=== PATIENT | female | born 1990 | race Caucasian/White ===

== ENCOUNTER 2018-03-07 21:29 | Emergency (ER) | payer OTHER, MEDICAID, SELFPAY ==
[2018-03-07 21:42] VITALS: BP 101/65; PULSE 111; RESP 16; TEMP 37.1; O2SAT 100; BMI 22.8
[2018-03-07] MEDS: KETOROLAC 60 MG/2 ML VIAL IM (22:27)
[2018-03-07] MEDS: ACETAMINOPHEN 325 MG TABLET 975 MG PO (22:27)
--- NOTE | 2018-03-07 23:02 | ED.HA ---
HPI - Headache General Chief Complaint: Headache Stated Complaint: HEADACHE Time Seen by Provider: 03/07/18 21:33 Source: patient and family Mode of arrival: ambulatory Limitations: no limitations History of Present Illness HPI Narrative: Patient presents with a chief complaint of a frontal headache for the past few days. She denies any focal neurologic findings or injury. She denies any chest pain, shortness of breath or cough. She has had no nausea or vomiting. She denies any neck pain. MD Complaint: headache and migraine Onset (ago): minute(s) Onset description: gradual Location: frontal Severity: mild Quality: aching and throbbing Relieving factors: nothing Exacerbating factors: none Context: occurred at rest Related Data Previous Rx's Medication Instructions Recorded acyclovir 800 mg PO 5XD #50 tab 12/19/16 mupirocin 2 % TOPICAL BID #22 gm 12/19/16 Allergies Allergy/AdvReac Type Severity Reaction Status Date / Time No Known Drug Allergies Allergy Verified 03/07/18 22:25 Review of Systems Review of Systems All systems reviewed & are unremarkable except as noted in HPI and below Constitutional Denies chills, Denies fever(s), Reports headache(s), Denies lethargy and Denies weakness Eyes Denies change in vision, Denies eye discharge, Denies irritation and Denies loss of vision ENT Ears, Nose, Mouth, and Throat: Denies change in voice, Reports headache(s), Denies neck pain and Denies sore throat Cardiovascular Denies chest pain, Denies irregular heart rhythm, Denies lightheadedness, Denies palpitations, Denies dyspnea, Denies dyspnea on exertion and Denies orthopnea Respiratory Denies cough, Denies dyspnea, Denies dyspnea on exertion and Denies wheezing Gastrointestinal Gastrointestinal: Denies abdominal pain, Denies change in bowel habits, Denies diarrhea, Denies nausea and Denies vomiting Genitourinary Denies hematuria, Denies flank pain, Denies urinary incontinence and Denies urinary urgency Musculoskeletal Denies neck pain Integumentary/Breasts Denies pruritus, Denies erythema, Denies rash and Denies wounds Neurologic Denies confusion, Reports headache(s), Denies loss of vision and Denies weakness Psychiatric Denies anxiety, Denies confusion, Denies depression, Denies homicidal ideation and Denies suicidal ideation Endocrine Denies palpitations Hematologic/Lymphatic Denies easy bruising Allergic/Immunologic Denies wheezing [facility] Social History Smoking Status: Current every day smoker Exam Narrative Exam Narrative: GEN: AOx3 and in mild distress EYES: Pupils are equal, round, and reactive to light and accommodation. Extraoccular muscles are intact bilaterally. There is no subconjunctival hemorrhage or exudate. CHEST: Lungs are clear to auscultation bilaterally and free of wheezes, rales, or rhonchi. Heart rate is regular rhythm, there are no murmurs, clicks, rubs, or gallops. There is no chest wall tenderness. ABD: Abdomen is soft and nontender. There is no guarding or rebound. Bowel sounds are normal in all 4 quadrants. There is no mass or organomegaly. EXT: Full painless ROM of all extremities with no loss of sensation or strength. SKIN: Warm, pink, and dry. No erythema or rash NIH Stroke Scale 1a. LOC: Patient is alert and keenly responsive (0) 1b. LOC Questions: Patient answers both LOC questions accurately (0) 1c. LOC Commands: Patient performs both tasks correctly (0) 2. Best Gaze: Normal (0) 3. Visual: No visual loss (0) 4. Facial palsy: Normal symmetrical movements (0) 5. Motor arm: No drift (0) 6. Motor leg: No drift (0) 7. Limb ataxia: Absent (0) 8. Sensory: Normal (0) 9. Best language: No aphasia; normal (0) 10. Dysarthria: Normal (0) 11. Extinction and inattention: No abnormality (0) NIHSS: 0 Initial Vital Signs Initial Vital Signs: Vital Signs Temperature 98.7 F 03/07/18 21:42 Pulse Rate 111 H 03/07/18 21:42 Respiratory Rate 16 03/07/18 21:42 Blood Pressure 101/65 03/07/18 21:42 Pulse Oximetry 100 03/07/18 21:42 Course Orders Ordered: Discontinued Medications Acetaminophen (Tylenol) 975 mg PO NOW ONE Stop: 03/07/18 22:22 Last Admin: 03/07/18 22:27 Dose: 975 mg Ketorolac Tromethamine (Toradol) 60 mg IM NOW ONE Stop: 03/07/18 22:22 Last Admin: 03/07/18 22:27 Dose: 60 mg Reevaluation(s) Reevaluation #1: Near complete resolution of symptoms after above-stated therapies Vital Signs - 8 hr 03/07/18 21:42 Temperature 98.7 F Pulse Rate 111 H Respiratory Rate 16 Blood Pressure 101/65 Pulse Oximetry 100 Discharge Plan Departure Patient Disposition: Home Clinical Impression: Headache Discharge Date/Time: 03/08/18 01:20 Interventions: ED Discharge Assessment Last Done: 03/08/18 01:49 Instructions: DI for Headache Activity Restrictions/Additional Instructions: *You have been diagnosed with [ acute headache ] *What to do: *Take medications as directed: Down on Motrin *Follow up with your primary care provider in 2-3 days, call for an appointment. Let them know you were seen in the Emergency Department and that we ask that you be seen in follow up *Return to ER if you should have any new, worsening or concerning symptoms Prescriptions: No Action acyclovir 800 MG tablet 800 mg PO 5XD Qty: 50 RF: 0 mupirocin 2 % ointment 2 % Topical BID Qty: 22 RF: 0
[2018-03-07 23:15] VITALS: BP 108/69; PULSE 104; RESP 18; TEMP 37.2; O2SAT 97
== END 2018-03-08 01:20 | disposition home or self-care (01) ==
PROVIDERS: Emergency Provider Emergency Medicine; Family Provider Family Medicine; PCP Family Medicine
DX: R51 Headache (principal)
CPT/HCPCS: 96372; 99282; 99283; J1885

== ENCOUNTER 2018-03-10 16:24 | Inpatient (IN) | payer OTHER, MEDICAID, SELFPAY ==
[2018-03-10] VITALS (7 sets, daily range): BP systolic 92–112; BP diastolic 56–78; PULSE 112–141; RESP 16–22; TEMP 36.6–39.3; O2SAT 95–98; BMI 20.9; BMI 22.4
--- NOTE | 2018-03-10 17:45 | DI.RAD.S_ITS ---
PROCEDURE: XR CHEST 1V INDICATIONS: suspected sepsis TECHNIQUE: One view of the chest was acquired. COMPARISON: None. FINDINGS: Surgical changes and devices: Nipple piercings are noted bilaterally. Lungs and pleura: No pleural effusions or pneumothorax. Lungs are clear. Mediastinum: Mediastinal contours appear normal. Heart size is normal. Bones and chest wall: No suspicious bony lesions. Overlying soft tissues appear unremarkable. IMPRESSION: No acute cardiopulmonary findings. Dictated by: Ninoska Oneill M.D. on 03/10/2018 at 18:30 Approved by: Ninoska Oneill M.D. on 03/10/2018 at 18:30
[2018-03-10] MEDS: SODIUM CHLORIDE 0.9% 1,000 ML 1000 ML IV (17:53)
[2018-03-10 17:56] LABS: Add Manual Diff / Slide Review NO; Basophils Percent Auto 0.3 % (0-2); Hematocrit 35.6 % (36-46); Lymphocytes Percent Auto 6.7 % (25-40); Mean Corpuscular HGB Conc 33.8 % (30-36); Mean Corpuscular Hemoglobin 26.1 PG (26-34); Mean Corpuscular Volume 77.3 fL (80-100); Monocytes Percent Auto 6.6 % (3-14); Neutrophils Absolute Auto 14000 /uL (3000-5900); Neutrophils Percent Auto 86.4 % (50-75); Platelet Count 125 X10^3/uL (150-400); Red Blood Cell Count 4.61 X10^6/uL (4.0-5.2); Red Cell Distribution Width 19.2 % (11.6-14.8); White Blood Cell Count 16.2 X10^3/uL (4.5-11.0)
[2018-03-10 18:00] LABS: INR 1.8 (0.9-1.3); Prothrombin Time 19.8 SECONDS (10.1-12.7)
[2018-03-10 18:03] LABS: PTT Partial Thromboplastin Tim 31 SECONDS (26.4-36.2)
[2018-03-10 18:04] LABS: Alanine Aminotransferase 31 IU/L (9-52); Albumin 3.3 g/dL (3.5-5.0); Albumin Globulin Ratio 0.7 (1.0-2.8); Alkaline Phosphatase 186 U/L (38-126); Aspartate Aminotransferase 55 IU/L (14-36); Bilirubin Total 1.4 mg/dL (0.2-1.3); Blood Urea Nitrogen 21 mg/dL (7-17); Calcium 8.1 mg/dL (8.4-10.2); Carbon Dioxide 31 mmol/L (22-32); Chloride 89 mmol/L (98-107); Estimated Glomerular Filt Rate > 60.0 mL/min (>60); Globulin 4.8 g/dL (1.7-4.1); Glucose 125 mg/dL (70-100); HEMOLYSIS 35 (0-50); Lipase 105 U/L (23-300); Sodium 128 mmol/L (137-145); Total Protein 8.1 g/dL (6.3-8.2)
--- NOTE | 2018-03-10 18:23 | ED_ITS ---
HPI - Fever General Chief Complaint: Fever Stated Complaint: STATES BLOOD INFECTION Time Seen by Provider: 03/10/18 18:12 Source: patient Mode of arrival: ambulatory Limitations: no limitations History of Present Illness HPI Narrative: Patient is a 28-year-old female. Admits to being an active IV heroin user here for evaluation of fevers and chills and not feeling well for the past month. Patient states that she does share needles with her boyfriend. She states that her boyfriend was diagnosed with a ?fungal ?infection? she states that her last use of heroin was approximately 6 hr prior to arrival here in the ER. She has had chills, fevers, not feeling well. Denies any other medical problems. Has not tried anything for this prior to arrival Related Data Allergies Allergy/AdvReac Type Severity Reaction Status Date / Time No Known Drug Allergies Allergy Verified 03/10/18 16:47 Review of Systems Constitutional Reports chills, Reports fatigue, Reports fever(s) and Reports headache(s) ENT Ears, Nose, Mouth, and Throat: Reports headache(s) Cardiovascular Denies chest pain, Denies rapid heart rate, Denies palpitations and Denies dyspnea Respiratory Denies cough and Denies dyspnea Gastrointestinal Gastrointestinal: Denies abdominal pain, Denies change in stool character, Reports nausea and Denies vomiting Genitourinary Denies dysuria Musculoskeletal Reports myalgias and Reports arthralgias Comments: Patient states that she hurts ?all over? Integumentary/Breasts Denies lesions and Denies rash Neurologic Denies confusion and Reports headache(s) Psychiatric Denies anxiety and Denies confusion Endocrine Reports fatigue and Denies palpitations Hematologic/Lymphatic Denies easy bleeding and Denies easy bruising [facility] Medical History Drug abuse, IV (Chronic) Surgical History No pertinent past surgical history (Acute) Family History: Reviewed 03/10/18 by Helder Guzman MD Social History household members: significant other Smoking Status: Current every day smoker Exam Initial Vital Signs Initial Vital Signs: Vital Signs Temperature 102.8 F H 03/10/18 16:34 Pulse Rate 141 H 03/10/18 16:34 Respiratory Rate 18 03/10/18 16:34 Blood Pressure 92/60 03/10/18 16:34 Pulse Oximetry 97 03/10/18 16:34 Const General: cooperative, well developed, disheveled and ill appearing Nutritional Appearance: well nourished Orientation: alert, awake and oriented x3 HENMT Head: normal to inspection and normocephalic Resp Effort & Inspection: normal respiratory effort Auscultation: clear to auscultation bilaterally Cardio Rate: tachycardic Rhythm: regular rhythm Heart Sounds: no murmurs Pulses: radial pulses present GI Inspection: non-distended Palpation: soft, No firm and No tender Back/Spine/Pelvis Back: No CVA tenderness Cervical Spine: No cervical muscular tenderness and No cervical spinal tenderness Skin Other: Multiple wounds bilateral upper extremities consistent with her IV drug abuse. None of these wounds have surrounding cellulitis. Neuro General: alert, awake and oriented x3 Cognition: normal cognition Speech: speech normal Motor: muscle tone normal throughout Sensory Exam: no sensory deficits noted Extrem General: normal to inspection and capillary refill normal Psych Appearance: grossly normal and disheveled Course Orders Ordered: ED Orders 03/10/18 17:25 Complete Blood Count AUTO DIFF Stat Comprehensive Metabolic Panel Stat Lipase Stat Partial Thromboplastin Time Stat Procalcitonin Stat Prothrombin Time INR Stat 03/10/18 17:45 XR chest 1V Stat HIV 1 and 2 Antibody Routine Hepatitis C Virus Antibody Routine 03/10/18 18:20 Lactate (Lactic Acid) Stat 03/10/18 18:23 Blood Culture Stat 03/10/18 18:45 Blood Culture Stat 03/10/18 19:19 Education, smoking cessation ONGOING 03/11/18 05:00 Basic Metabolic Panel Routine Complete Blood Count AUTO DIFF Routine Acetaminophen (Tylenol) 650 mg PO Q6H PRN PRN Reason: As Needed for Fever/Mild Pain Hydromorphone HCl (Dilaudid) 2 mg IV Q3H PRN PRN Reason: Pain, Severe (7-10) Last Admin: 03/10/18 20:13 Dose: 2 mg Sodium Chloride (Normal Saline 0.9%) 1,905.09 mls @ 635.03 mls/hr 30 ml/kg infuse over 3 hr (1905.09 ml) IV CONT HORACIO Last Infusion: 03/10/18 20:21 Dose: 635 mls/hr Infusion: 03/10/18 19:25 Dose: 0 mls/hr Admin: 03/10/18 18:46 Dose: 635.03 mls/hr Sodium Chloride (Normal Saline 0.9%) 1,000 mls @ 100 mls/hr IV CONT HORACIO Last Admin: 03/10/18 21:57 Dose: 100 mls/hr Infusion: 03/10/18 21:57 Dose: 0 mls/hr Infusion: 03/10/18 20:25 Dose: 0 mls/hr Admin: 03/10/18 20:20 Dose: 100 mls/hr Vancomycin HCl/Dextrose (Vancomycin) 1,000 mg in 200 mls @ 200 mls/hr IV Q8H HORACIO Last Infusion: 03/10/18 21:38 Dose: 0 mls/hr Admin: 03/10/18 20:14 Dose: 200 mls/hr Lorazepam (Ativan) 1 mg IV Q4H PRN PRN Reason: Anxiety Last Admin: 03/10/18 20:13 Dose: 1 mg Ondansetron HCl (Zofran) 4 mg IV Q6HR HORACIO Last Admin: 03/10/18 20:20 Dose: 4 mg Vancomycin HCl (Vancomycin Per Pharmacy) 1 request MISC NOW ONE Stop: 03/10/18 19:19 Discontinued Medications Acetaminophen (Tylenol) 975 mg PO NOW ONE Stop: 03/10/18 18:25 Last Admin: 03/10/18 18:45 Dose: 975 mg Sodium Chloride (Normal Saline 0.9%) 1,000 mls @ 1,000 mls/hr IV BOLUS ONE Stop: 03/10/18 18:44 Last Infusion: 03/10/18 18:43 Dose: 0 mls/hr Admin: 03/10/18 17:53 Dose: 1,000 mls/hr Vancomycin HCl/Dextrose (Vancomycin) 1,000 mg in 200 mls @ 200 mls/hr IV NOW ONE Stop: 03/10/18 19:11 Last Admin: 03/10/18 19:12 Dose: 200 mls/hr Piperacillin/Tazobactam/Dextrose (Zosyn) 3.375 gm in 50 mls @ 100 mls/hr IV NOW ONE Stop: 03/10/18 18:41 Last Infusion: 03/10/18 19:16 Dose: 0 mls/hr Admin: 03/10/18 18:45 Dose: 100 mls/hr Vital Signs - 8 hr 03/10/18 16:34 03/10/18 18:30 03/10/18 18:53 Temperature 102.8 F H Pulse Rate 141 H 127 H 126 H Respiratory Rate 18 16 19 Blood Pressure 92/60 Blood Pressure [Left Arm] 109/63 100/66 Pulse Oximetry 97 95 97 03/10/18 19:13 03/10/18 19:30 03/10/18 20:12 Temperature 101.5 F H Pulse Rate 128 H Respiratory Rate 22 Blood Pressure 109/78 Blood Pressure [Left Arm] Pulse Oximetry 96 96 MDM - Fever Lab Data Attestation: I reviewed the patient's lab results. Result diagrams: 03/10/18 17:25 03/10/18 17:25 Lab Results 03/10/18 03/10/18 03/10/18 Range/Units 17:25 17:25 17:25 WBC 16.2 H (4.5-11.0) X10^3/uL RBC 4.61 (4.0-5.2) X10^6/uL Hgb 12.0 (12.0-16.0) g/dL Hct 35.6 L (36-46) % MCV 77.3 L (80-100) fL MCH 26.1 (26-34) PG MCHC 33.8 (30-36) % RDW 19.2 H (11.6-14.8) % Plt Count 125 L (150-400) X10^3/uL Neut % (Auto) 86.4 H (50-75) % Lymph % (Auto) 6.7 L (25-40) % [place] % (Auto) 6.6 (3-14) % Eos % (Auto) 0.0 L (2-4) % Baso % (Auto) 0.3 (0-2) % Neut # (Auto) 96662 H (0633-2323) /uL PT 19.8 H (10.1-12.7) SECONDS INR 1.8 H (0.9-1.3) APTT 31 (26.4-36.2) SECONDS Sodium (137-145) mmol/L Potassium (3.4-5.1) mmol/L Chloride (98-107) mmol/L Carbon Dioxide (22-32) mmol/L BUN (7-17) mg/dL Creatinine (0.52-1.04) mg/dL Estimated GFR (>60) mL/min BUN/Creatinine Ratio (6-22) Glucose (70-100) mg/dL Lactate (0.7-2.1) mmol/L Calcium (8.4-10.2) mg/dL Total Bilirubin (0.2-1.3) mg/dL AST (14-36) IU/L ALT (9-52) IU/L Alkaline Phosphatase (38-126) U/L Total Protein (6.3-8.2) g/dL Albumin (3.5-5.0) g/dL Globulin (1.7-4.1) g/dL Albumin/Globulin Ratio (1.0-2.8) Lipase (23-300) U/L Procalcitonin 2.57 H (<0.5) ng/mL 03/10/18 03/10/18 Range/Units 17:25 18:20 WBC (4.5-11.0) X10^3/uL RBC (4.0-5.2) X10^6/uL Hgb (12.0-16.0) g/dL Hct (36-46) % MCV (80-100) fL MCH (26-34) PG MCHC (30-36) % RDW (11.6-14.8) % Plt Count (150-400) X10^3/uL Neut % (Auto) (50-75) % Lymph % (Auto) (25-40) % [place] % (Auto) (3-14) % Eos % (Auto) (2-4) % Baso % (Auto) (0-2) % Neut # (Auto) (1444-8463) /uL PT (10.1-12.7) SECONDS INR (0.9-1.3) APTT (26.4-36.2) SECONDS Sodium 128 L (137-145) mmol/L Potassium 4.0 (3.4-5.1) mmol/L Chloride 89 L (98-107) mmol/L Carbon Dioxide 31 (22-32) mmol/L BUN 21 H (7-17) mg/dL Creatinine 0.70 (0.52-1.04) mg/dL Estimated GFR > 60.0 (>60) mL/min BUN/Creatinine Ratio 30.0 H (6-22) Glucose 125 H (70-100) mg/dL Lactate 2.0 (0.7-2.1) mmol/L Calcium 8.1 L (8.4-10.2) mg/dL Total Bilirubin 1.4 H (0.2-1.3) mg/dL AST 55 H (14-36) IU/L ALT 31 (9-52) IU/L Alkaline Phosphatase 186 H (38-126) U/L Total Protein 8.1 (6.3-8.2) g/dL Albumin 3.3 L (3.5-5.0) g/dL Globulin 4.8 H (1.7-4.1) g/dL Albumin/Globulin Ratio 0.7 L (1.0-2.8) Lipase 105 (23-300) U/L Procalcitonin (<0.5) ng/mL Imaging Data Chest x-ray: Radiologist's impression: PROCEDURE: XR CHEST 1V INDICATIONS: suspected sepsis TECHNIQUE: One view of the chest was acquired. COMPARISON: None. FINDINGS: Surgical changes and devices: Nipple piercings are noted bilaterally. Lungs and pleura: No pleural effusions or pneumothorax. Lungs are clear. Mediastinum: Mediastinal contours appear normal. Heart size is normal. Bones and chest wall: No suspicious bony lesions. Overlying soft tissues appear unremarkable. IMPRESSION: No acute cardiopulmonary findings. Dictated by: Ninoska Oneill M.D. on 03/10/2018 at 18:30 ECG Data Attestation: I personally reviewed and interpreted this ECG as follows: Prior ECG tracings: not available for review Interpretation: Sinus tachycardia Ventricular rate of 130 Normal QRS Normal QTC Normal axis No ST T wave changes MDM Narrative Medical decision making narrative: Patient is ill-appearing however not toxic. She is tachycardic, as an elevated white blood cell count, is febrile, no source of infection identified on her exam. She does admit to being an IV drug user and sharing her needles. Do have concern for bacteremia. 30 cc/kilos of fluids were ordered for the sepsis. Antibiotics ordered here in the emergency department. Three sets of blood cultures obtained secondary to the concern for endocarditis. Chest x-ray is unremarkable. Discussed the case with Dr. Guzman who accepts the patient for admission to the hospital. Discussed the admission with the patient. She expressed understanding and agreement with plan. Discharge Plan Departure Patient Disposition: Admitted As Inpatient Clinical Impression: Fever of unknown origin, Drug abuse, IV Discharge Date/Time: 03/10/18 19:28 Interventions: ED Discharge Assessment Last Done: 03/10/18 19:13 Admit Date/Time: 03/10/18 18:54 Admit Provider: Alek Estrella
[2018-03-10] MEDS: ACETAMINOPHEN 325 MG TABLET 975 MG PO (18:45)
[2018-03-10] MEDS: PIPERACILLIN-TAZO 3.375 GM/50 ML FROZ.PIGGY IV (18:45)
[2018-03-10] MEDS: SODIUM CHLORIDE 0.9% 1,905.09 ML 635.03 ML IV (18:46)
[2018-03-10 19:07] LABS: Procalcitonin 2.57 ng/mL (<0.5)
[2018-03-10] MEDS: VANCOMYCIN 1,000 MG/200 ML FROZ.PIGGY 200 MG IV ×2 (19:12→20:14)
--- NOTE | 2018-03-10 19:32 | PM.HP.1 ---
History of Present Illness Date Patient Seen: 03/10/18 Time Patient Seen: 19:33 Chief complaint: STATES BLOOD INFECTION Narrative: Patient is a 28-year-old female with current IV drug use history presents to the emergency department with complaints of fever and chills and not feeling well for the past week. On initial vitals she had a temp of 102.8?, heart rate 140, blood pressure 92/60, O2 sat 97% room air. Along with the fever and chills she has had severe pain in the lumbar spine as well as a headache and intermittent nausea or vomiting. She reports a slight cough but nothing persistent. She admits to sharing needles with her boyfriend. She uses both heroin and methamphetamine. She states her boyfriend was recently admitted to outside hospital and diagnosed with a yeast infection in his blood. She states she had blood work done a month ago and told she has elevated liver enzymes and to get checked for hepatitis-C. She has not had this testing done. She denies HIV history. Patient History Family & Social History Family History: Reviewed 03/10/18 by Helder Guzman MD Safety & Behavioral: Feels Safe in Current Yes Environment Been Physically Hurt or No Threatened By a Person Tobacco & Substance use: Smoking Status Current every day smoker alcohol intake frequency holiday/special occasion Substance Use Type marijuana,crack/cocaine,heroin,IV drugs Comment: Patient is currently homeless. Meds Home Medications Medication Instructions Recorded Confirmed Type acyclovir 800 mg PO 5XD #50 tab 12/19/16 Rx mupirocin 2 % TOPICAL BID #22 gm 12/19/16 Rx Allergies Allergy/AdvReac Type Severity Reaction Status Date / Time No Known Drug Allergies Allergy Verified 03/10/18 16:47 Review of Systems Review of Systems All systems reviewed & are unremarkable except as noted in HPI and below Exam Vital Signs (past 8 hours): - 03/10/18 16:34 03/10/18 18:30 03/10/18 18:53 Temperature 102.8 F H Pulse Rate 141 H 127 H 126 H Respiratory Rate 18 16 19 Blood Pressure 92/60 Blood Pressure [Left Arm] 109/63 100/66 Pulse Oximetry 97 95 97 03/10/18 19:13 Temperature Pulse Rate 128 H Respiratory Rate 22 Blood Pressure 109/78 Blood Pressure [Left Arm] Pulse Oximetry 96 Oxygen Delivery Method Room Air Narrative Exam Narrative: GENERAL: Alert but ill-appearing female in moderate distress HEAD: Atraumatic. Normocephalic. EYES: Pupils equal, round and reactive. Extraocular motions intact. No scleral icterus. No injection or drainage. OROPHARYNX: Dry mucosa NECK: Trachea midline. No JVD or lymphadenopathy. CARDIOVASCULAR: Regular rate and rhythm without murmurs, gallops, or rubs. RESPIRATORY: Clear to auscultation bilaterally. GASTROINTESTINAL: Abdomen nondistended, soft, non-tender. No hepato-splenomegaly, no palpable masses. Back/musculoskeletal: She has localized tenderness over lumbar spine. No areas of swelling or fluctuance. No swollen or erythematous joints. EXTREMITIES: No edema. NEUROLOGICAL: Alert, well oriented, speech is intact, normal bilateral upper and lower extremity strength SKIN: warm, dry, multiple needle tracks noted on upper and lower extremities, no rash Objective Imaging Chest x-ray: Radiologist's impression: Normal, no acute abnormality Labs Result Diagrams: 03/10/18 17:25 03/10/18 17:25 Labs: Laboratory Results - last 24 hr 03/10/18 03/10/18 03/10/18 17:25 17:25 17:25 WBC 16.2 H RBC 4.61 Hgb 12.0 Hct 35.6 L MCV 77.3 L MCH 26.1 MCHC 33.8 RDW 19.2 H Plt Count 125 L Neut % (Auto) 86.4 H Lymph % (Auto) 6.7 L [place] % (Auto) 6.6 Eos % (Auto) 0.0 L Baso % (Auto) 0.3 Neut # (Auto) 78550 H PT 19.8 H INR 1.8 H APTT 31 Sodium Potassium Chloride Carbon Dioxide BUN Creatinine Estimated GFR BUN/Creatinine Ratio Glucose Lactate Calcium Total Bilirubin AST ALT Alkaline Phosphatase Total Protein Albumin Globulin Albumin/Globulin Ratio Lipase Procalcitonin 2.57 H 03/10/18 03/10/18 17:25 18:20 WBC RBC Hgb Hct MCV MCH MCHC RDW Plt Count Neut % (Auto) Lymph % (Auto) [place] % (Auto) Eos % (Auto) Baso % (Auto) Neut # (Auto) PT INR APTT Sodium 128 L Potassium 4.0 Chloride 89 L Carbon Dioxide 31 BUN 21 H Creatinine 0.70 Estimated GFR > 60.0 BUN/Creatinine Ratio 30.0 H Glucose 125 H Lactate 2.0 Calcium 8.1 L Total Bilirubin 1.4 H AST 55 H ALT 31 Alkaline Phosphatase 186 H Total Protein 8.1 Albumin 3.3 L Globulin 4.8 H Albumin/Globulin Ratio 0.7 L Lipase 105 Procalcitonin Assessment & Plan Plan: Assessment/Plan Narrative: 1. Sepsis: Patient presents with fever, leukocytosis, hypotension and tachycardia, elevated procalcitonin all indicative of sepsis. Blood pressure responding to initial IV volume resuscitation. Likely source is blood borne bacteremia, especially staphylococcal aureus, due to IV drug use. Differential includes systemic yeast or fungal infections since her partner was recently diagnosed and treated for unknown blood borne yeast infection. Patient has significant pain and tenderness in the lower spine concerning for osteomyelitis or diskitis. She also has headache but no nuchal rigidity suggestive of meningitis. She has elevated LFTs concerning for potential liver abscess versus chronic due to hepatitis-C or other causes. Chest x-ray looks okay. Three sets of blood cultures were obtained in the ED prior to antibiotic administration. Urinalysis pending. Plan: IV vancomycin. Continue volume resuscitation. Lumbar MRI, rule out osteomyelitis or diskitis. Repeat labs in a.m.. Patient is difficult IV stick with tenuous peripheral IV and PICC line ordered. 2. Elevated LFTs: Obtain abdominal ultrasound, hepatitis C antibody. 3. IV drug use, heroin and methamphetamine dependency: Control withdrawal with IV lorazepam and Dilaudid as needed. Patient consents to HIV testing. 4. Coagulopathy: INR 1.8 possibly due to chronic liver disease versus nutritional or sepsis related.
[2018-03-10] MEDS: LORazepam 2 MG/ML SYRINGE 1 MG IV (20:13)
[2018-03-10] MEDS: HYDROMORPHONE 2 MG INJ IV ×2 (20:13→23:41)
[2018-03-10] MEDS: SODIUM CHLORIDE 0.9% 1,000 ML 100 ML IV ×2 (20:20→21:57)
[2018-03-10] MEDS: ONDANSETRON 4 MG/2 ML INJ IV (20:20)
--- NOTE | 2018-03-10 22:12 | PC.ADMIT ---
1517 [facility] Admission Note: The patient,Carol Arreola,28 y/o, was given written information regarding hospital policies, unit procedures and contact persons. Patient's smoking status: Current every day smoker. Vital Signs - 8 hr 03/10/18 16:34 03/10/18 18:30 03/10/18 18:53 Temperature 102.8 F H Pulse Rate 141 H 127 H 126 H Respiratory Rate 18 16 19 Blood Pressure 92/60 Blood Pressure [Left Arm] 109/63 100/66 Pulse Oximetry 97 95 97 03/10/18 19:13 03/10/18 19:30 03/10/18 20:12 Temperature 101.5 F H Pulse Rate 128 H Respiratory Rate 22 Blood Pressure 109/78 Blood Pressure [Left Arm] Pulse Oximetry 96 96 Pt arrived to floor at 1930. Pt shivering, shaking in pain. Pt temp 101.5. Pt compliant. pt oriented to hospital room and procedures, Pt uses call light, sba to br. Pt given lots of snacks. Pt tearful at times. asked if she was going to . reassured pt that it was good she came in. pt asking about boyfriend and if he has called to ask about her yet. Pt given pain medicine and ativan. midline started by precision. double lumen. will continue to monitor pt for safety. bed alarm on. side rails up x3. pt had jewelry, sweat pants, bra and sweater, placed in bag and put in pt closet. Pt forthcoming will all drug use and history. Pt stated her boyfriend was sick a month ago and signed himself out AMA and she believes that they may have accidentally shared needles. Pt sated she has not felt well for a few days, pt stated that her boyfriend told her she needed to come in. Pt updated on plan of acre, medicine, and use and to not misuse midline. will continue to monitor.
--- NOTE | 2018-03-10 22:30 | PC.ADMIT ---
Addendum entered by Lizeth Anne R.N. 03/10/18 22:34: 2020- precision in to start midline on pt. double lumen. to be flushed with 50 units heparin tubes. will continue to monitor. Original Note: 1517 [address] Timmons Admission Note: The patient,Carol Arreola,28 y/o, was given written information regarding hospital policies, unit procedures and contact persons. Patient's smoking status: Current every day smoker. Vital Signs - 8 hr 03/10/18 16:34 03/10/18 18:30 03/10/18 18:53 Temperature 102.8 F H Pulse Rate 141 H 127 H 126 H Respiratory Rate 18 16 19 Blood Pressure 92/60 Blood Pressure [Left Arm] 109/63 100/66 Pulse Oximetry 97 95 97 03/10/18 19:13 03/10/18 19:30 03/10/18 20:12 Temperature 101.5 F H 101.5 F H Pulse Rate 128 H 128 H Respiratory Rate 18 Blood Pressure 109/78 112/65 Blood Pressure [Left Arm] Pulse Oximetry 96 98 Pt arrived to floor at 1930. Pt awake and alert. ambulatory. opt grimacing and shivering. PT has goose pimples throughout body. pt compliant and forthcoming with drug abuse. Pt states she is really scared, asked if she was going to . fluids infusing. belongings in closet. Pt complaint. urine collected and sent down. Pt given snacks, and meds per mar. Pt compliant. PT very cooperative. Pt asked multiple times if boyfriend tal had called. stated that she had accidentally possibly shared needles with boyfriend a while back, and her boyfriend was in the hospital and signed out AMA and that he had yeast in his blood. Pt states she is homeless and lives in her car. last she knew her boyfriend was in [place]. he encouraged her to come in and that she has not been feeling well for a few days and has not slept well for the last few nights. Pt fever coming down. belongings and call light within reach. pt given soup and pt eating. will continue to monitor pt for safety.
[2018-03-10 23:51] LABS: HIV 1 and 2 Antibody NEGATIVE (NEGATIVE); Hep C Virus Ab w/Reflex Quant REACTIVE s/c (NEGATIVE)
[2018-03-11] VITALS (10 sets, daily range): BP systolic 106–115; BP diastolic 57–69; PULSE 106–122; RESP 16–18; TEMP 36.6–37.9; O2SAT 94–100
--- NOTE | 2018-03-11 | DI.US.S_ITS ---
PROCEDURE: US ABDOMEN COMPLETE INDICATIONS: ABNL LFTS TECHNIQUE: Real-time scanning was performed of the abdominal and retroperitoneal organs, with image documentation. COMPARISON: None. FINDINGS: Liver: The liver is measuring within the upper limits of normal for size. An no definite liver lesions are evident. The echogenicity of the liver is within normal limits. Gallbladder: The gallbladder is contracted. The patient was not n.p.o. for this examination. No cholelithiasis is evident. No pericholecystic fluid is identified. Biliary ducts: Intrahepatic bile ducts are non-dilated. Extrahepatic bile duct caliber measures 5 mm. Normal is 6-7 mm or less in diameter, or 10 mm or less post-cholecystectomy. Pancreas: Visualized portions of the pancreas are sonographically normal. Spleen: The spleen is mildly enlarged at 13.5 cm. No focal splenic lesions are evident. Kidneys: Kidneys are normal in size and echotexture. Right kidney measures 13.8 cm long; left kidney measures 13.3 cm long. No hydronephrosis or nephrolithiasis. No solid masses. Aorta: Visualized aorta is normal in caliber at less than 3 cm. Iliacs: Obscured by bowel gas. IVC: Intrahepatic inferior vena cava is patent. Miscellaneous: No free abdominal fluid. IMPRESSION: 1. Contracted gallbladder without evidence of cholelithiasis. 2. Borderline enlargement of the liver. No definite liver lesions. 3. Mild splenomegaly. Dictated by: Nolan Mahajan M.D. on 03/11/2018 at 9:15 Approved by: Nolan Mahajan M.D. on 03/11/2018 at 9:20
--- NOTE | 2018-03-11 | DI.MRI.S_ITS ---
PROCEDURE: MR LUMBAR SPINE WO CON INDICATIONS: Low back and bilateral hip pain TECHNIQUE: Noncontrast sagittal T1 spin echo and T2 fast echo, sagittal STIR, axial T1 and T2 fast spin echo through the lumbar spine. In cases with scoliosis, additional coronal T2 fast spin echo may be performed. COMPARISON: None. FINDINGS: Image quality: Excellent. Alignment and Curvature: There is normal bony alignment. Bone Marrow: Marrow is of normal overall signal. No acute vertebral body compression fractures. Spinal Cord: Conus medullaris terminates at the L1 level. Visualized cord demonstrates normal signal and size. Paraspinous Soft Tissues: No paravertebral masses. T12-L1: Normal appearance. L1-L2: Normal appearance. L2-L3: Normal appearance. L3-L4: Moderate loss of disc height is seen. Loss of disc signal is seen. Moderate disc bulge is seen, with a central disc extrusion, as on series 5 image 20, and on series 6 image 9, with slight inferior migration of disc material. There is an associated annular fissure seen posteriorly, as on series 6 image 9. Moderate bilateral neural foraminal narrowing is seen. Moderate central canal narrowing is seen. L4-L5: The disc height is well-preserved. Loss of disc signal is seen at this level. Moderate generalized disc bulge is seen. There is a central disc protrusion seen, with an associated annular fissure, as on series 6 image 8 and on series 5 image 12. Mild facet joint hypertrophy is seen. There is mild to moderate right-sided and moderate left-sided neural foraminal narrowing seen. Mild central canal narrowing is seen. L5-S1: No significant abnormality is seen. IMPRESSION: Focal degenerative changes are seen at the L3-L4 level and the L4-L5 level, which are more prominent than would be expected for a patient of this young age. At L3-L4, there is a central disc extrusion. Annular fissures are seen posteriorly at the L3-L4 and L4-L5 levels. Dictated by: Asher Shah M.D. on 03/11/2018 at 12:15 Approved by: Asher Shah M.D. on 03/11/2018 at 12:21
[2018-03-11] MEDS: LORazepam 2 MG/ML SYRINGE 1 MG IV ×2 (00:23→04:48)
[2018-03-11 01:22] LABS: Bacteria Urine None Seen; RBC Urine None Seen (0-5/HPF); WBC Urine None Seen (0-5/HPF)
[2018-03-11 01:23] LABS: Appearance Urine UA CLEAR; Bilirubin Urine UA NEGATIVE (NEGATIVE); Color Urine UA YELLOW; Glucose Urine UA NEGATIVE (Normal); Ketones Urine UA NEGATIVE (NEGATIVE); Leukocyte Esterase Urine UA NEGATIVE (NEGATIVE); Nitrite Urine UA Negative (Negative); Occult Blood Urine UA TRACE-LYSED (Negative); Protein Urine UA NEGATIVE (Negative); Specific Gravity Urine UA <=1.005 (1.000-1.035); Urobilinogen Urine UA 0.2 E.U./dL (0.2); pH Urine UA 5.5 (4.5-8.0)
[2018-03-11 01:32] LABS: Culture Indicated Urine Cult Not Indicated; Urine Comments Microscopic Normal
[2018-03-11] MEDS: VANCOMYCIN 1,000 MG/200 ML FROZ.PIGGY 200 MG IV (04:43)
[2018-03-11] MEDS: HYDROMORPHONE 2 MG INJ IV ×3 (04:43→12:30)
[2018-03-11 05:15] LABS: Enterococcus species Not Detected (Not Detect); Listeria monocytogenes Not Detected (Not Detect)
[2018-03-11 05:16] LABS: Methicillin-resistant gene Detected (Not Detect)
[2018-03-11 05:17] LABS: Acinetobacter baumannii Not Detected (Not Detect); E. coli Not Detected (Not Detect); Enterobacter cloacae complex Not Detected (Not Detect); Enterobacteriaceae species Not Detected (Not Detect); Streptococcus agalactiae (Gr B Not Detected (Not Detect); Streptococcus pneumonia Not Detected (Not Detect); Streptococcus pyogenes (Gr A) Not Detected (Not Detect); Streptococcus species Not Detected (Not Detect)
--- NOTE | 2018-03-11 05:17 | PC.NURSE ---
Addendum entered by Lizeth King R.N. 03/11/18 06:50: 0645 Pt has been resting with eyes closed and no s/s of distress when checked on by this RN the last hour and a half. Pt has now called with c/o 10/10 pain to her back, drowsy with FLACC score 1 due to occasional grimace. Agrees to take Tylenol for back pain and pt wants the next dose of Dilaudid to be brought in when available. Original Note: electric distribution engineer: 444 Vanco infusing. Medicated with IV Dilaudid for 9/10 back pain. Pt reports feeling restless and having some mild hallucinations, medicated with prn Ativan. 0510 notified by Lab of positive blood cultures. Pt has been on contact precautions since admitted to the floor so will continue with that plan of care and notify .
[2018-03-11 05:18] LABS: Candida albicans Not Detected (Not Detect); Candida glabrata Not Detected (Not Detect); Candida krusei Not Detected (Not Detect); Candida parapsilosis Not Detected (Not Detect); Candida tropicalis Not Detected (Not Detect); Haemophilus influenzae Not Detected (Not Detect); Neisseria meningitidis Not Detected (Not Detect); Proteus species Not Detected (Not Detect); Pseudomonas aeruginosa Not Detected (Not Detect); Serratia marcescens Not Detected (Not Detect)
[2018-03-11 05:52] LABS: Add Manual Diff / Slide Review NO; Basophils Percent Auto 0.3 % (0-2); Eosinophils Percent Auto 0.4 % (2-4); Hemoglobin 10.1 g/dL (12.0-16.0); Lymphocytes Percent Auto 8.8 % (25-40); Mean Corpuscular HGB Conc 33.7 % (30-36); Mean Corpuscular Hemoglobin 26.4 PG (26-34); Mean Corpuscular Volume 78.2 fL (80-100); Monocytes Percent Auto 9.3 % (3-14); Neutrophils Absolute Auto 10300 /uL (3000-5900); Neutrophils Percent Auto 81.2 % (50-75); Platelet Count 94 X10^3/uL (150-400); Red Blood Cell Count 3.84 X10^6/uL (4.0-5.2); Red Cell Distribution Width 18.7 % (11.6-14.8); White Blood Cell Count 12.7 X10^3/uL (4.5-11.0)
[2018-03-11 05:54] LABS: Blood Urea Nitrogen 12 mg/dL (7-17); Calcium 7.4 mg/dL (8.4-10.2); Carbon Dioxide 31 mmol/L (22-32); Chloride 101 mmol/L (98-107); Estimated Glomerular Filt Rate > 60.0 mL/min (>60); Glucose 122 mg/dL (70-100); HEMOLYSIS < 15 (0-50); Potassium 4.2 mmol/L (3.4-5.1); Sodium 136 mmol/L (137-145)
[2018-03-11] MEDS: ACETAMINOPHEN 325 MG TABLET 650 MG PO ×2 (06:48→20:16)
[2018-03-11] MEDS: VANCOMYCIN 1,250 MG in SODIUM CHLORIDE 0.9% 250 ML IV ×2 (12:29→20:07)
--- NOTE | 2018-03-11 13:14 | PM.PN.1 ---
Subjective Date Patient Seen: 03/11/18 Interval history: Patient growing MRSA and blood cultures from admission. Fever coming down on IV vancomycin. She has been cooperative with care. Complaint of low back pain. Exam Vital Signs (past 8 hours): - 03/11/18 07:00 03/11/18 07:55 Temperature 99.2 F Pulse Rate 122 H Respiratory Rate 18 Blood Pressure 108/61 Pulse Oximetry 96 96 Oxygen Delivery Method Room Air Narrative Exam Narrative: General: Alert, pleasant and cooperative Lungs: Breathing nonlabored Extremities: No edema Neurological: Oriented x3, nonfocal Objective Imaging MRI - lumbar: Radiologist's impression: Focal degenerative changes are seen at the L3-L4 level and the L4-L5 level, which are more prominent than would be expected for a patient of this young age. At L3-L4, there is a central disc extrusion. Annular fissures are seen posteriorly at the L3-L4 and L4-L5 levels. US - abdomen: Radiologist's impression: 1. Contracted gallbladder without evidence of cholelithiasis. 2. Borderline enlargement of the liver. No definite liver lesions. 3. Mild splenomegaly. Labs Result Diagrams: 03/11/18 05:15 03/11/18 05:15 Labs: Laboratory Results - last 24 hr 03/10/18 03/10/18 03/10/18 17:25 17:25 17:25 WBC 16.2 H RBC 4.61 Hgb 12.0 Hct 35.6 L MCV 77.3 L MCH 26.1 MCHC 33.8 RDW 19.2 H Plt Count 125 L Neut % (Auto) 86.4 H Lymph % (Auto) 6.7 L [place] % (Auto) 6.6 Eos % (Auto) 0.0 L Baso % (Auto) 0.3 Neut # (Auto) 11478 H PT 19.8 H INR 1.8 H APTT 31 Sodium Potassium Chloride Carbon Dioxide BUN Creatinine Estimated GFR BUN/Creatinine Ratio Glucose Lactate Calcium Total Bilirubin AST ALT Alkaline Phosphatase Total Protein Albumin Globulin Albumin/Globulin Ratio Lipase Procalcitonin 2.57 H Urine Color Urine Appearance Urine pH Ur Specific Rillito Urine Protein Urine Glucose (UA) Urine Ketones Urine Occult Blood Urine Nitrate Urine Bilirubin Urine Urobilinogen Ur Leukocyte Esterase Urine RBC Urine WBC Urine Bacteria Ur Culture Indicated? Micro UA Comment A. baumannii (PCR) Briana albicans (PCR) C. glabrata (PCR) C. krusei (PCR) C. parapsilosis (PCR) C. tropicalis (PCR) Enterobacteriac sp PCR E. cloacae complex PCR Enterococcus sp PCR E. coli (PCR) H. influenzae (PCR) Hepatitis C Antibody HIV 1&2 Antibody Klebsiella oxytoca PCR Klebsiella pneumoniae List. monocytogenes PCR N. meningitidis (PCR) Proteus species (PCR) Serratia marcescens PCR Staphylococcus sp PCR Staph aureus (PCR) mecA-Methicil Res Gene Streptococcus sp PCR Group A Strep (PCR) Strep agalactiae (PCR) Strep pneumoniae (PCR) P. aeruginosa (PCR) Yokasta/B-Vanco Res Genes KPC-Carbap Res Gene PCR 03/10/18 03/10/18 03/10/18 17:25 17:25 17:45 WBC RBC Hgb Hct MCV MCH MCHC RDW Plt Count Neut % (Auto) Lymph % (Auto) [place] % (Auto) Eos % (Auto) Baso % (Auto) Neut # (Auto) PT INR APTT Sodium 128 L Potassium 4.0 Chloride 89 L Carbon Dioxide 31 BUN 21 H Creatinine 0.70 Estimated GFR > 60.0 BUN/Creatinine Ratio 30.0 H Glucose 125 H Lactate Calcium 8.1 L Total Bilirubin 1.4 H AST 55 H ALT 31 Alkaline Phosphatase 186 H Total Protein 8.1 Albumin 3.3 L Globulin 4.8 H Albumin/Globulin Ratio 0.7 L Lipase 105 Procalcitonin Urine Color Urine Appearance Urine pH Ur Specific [place] Urine Protein Urine Glucose (UA) Urine Ketones Urine Occult Blood Urine Nitrate Urine Bilirubin Urine Urobilinogen Ur Leukocyte Esterase Urine RBC Urine WBC Urine Bacteria Ur Culture Indicated? Micro UA Comment A. baumannii (PCR) Not detected Briana albicans (PCR) Not detected C. glabrata (PCR) Not detected C. krusei (PCR) Not detected C. parapsilosis (PCR) Not detected C. tropicalis (PCR) Not detected Enterobacteriac sp PCR Not detected E. cloacae complex PCR Not detected Enterococcus sp PCR Not detected E. coli (PCR) Not detected H. influenzae (PCR) Not detected Hepatitis C Antibody Reactive H HIV 1&2 Antibody Negative Klebsiella oxytoca PCR Not detected Klebsiella pneumoniae Not detected List. monocytogenes PCR Not detected N. meningitidis (PCR) Not detected Proteus species (PCR) Not detected Serratia marcescens PCR Not detected Staphylococcus sp PCR Not Reportable Staph aureus (PCR) Detected H mecA-Methicil Res Gene Detected H Streptococcus sp PCR Not detected Group A Strep (PCR) Not detected Strep agalactiae (PCR) Not detected Strep pneumoniae (PCR) Not detected P. aeruginosa (PCR) Not detected Yokasta/B-Vanco Res Genes Not Reportable KPC-Carbap Res Gene PCR Not Reportable 03/10/18 03/10/18 03/11/18 18:20 21:45 05:15 WBC 12.7 H RBC 3.84 L Hgb 10.1 L Hct 30.0 L MCV 78.2 L MCH 26.4 MCHC 33.7 RDW 18.7 H Plt Count 94 L Neut % (Auto) 81.2 H Lymph % (Auto) 8.8 L [place] % (Auto) 9.3 Eos % (Auto) 0.4 L Baso % (Auto) 0.3 Neut # (Auto) 74311 H PT INR APTT Sodium Potassium Chloride Carbon Dioxide BUN Creatinine Estimated GFR BUN/Creatinine Ratio Glucose Lactate 2.0 Calcium Total Bilirubin AST ALT Alkaline Phosphatase Total Protein Albumin Globulin Albumin/Globulin Ratio Lipase Procalcitonin Urine Color Yellow Urine Appearance Clear Urine pH 5.5 Ur Specific Rillito <=1.005 Urine Protein Negative Urine Glucose (UA) Negative Urine Ketones Negative Urine Occult Blood Trace-lysed Urine Nitrate Negative Urine Bilirubin Negative Urine Urobilinogen 0.2 Ur Leukocyte Esterase Negative Urine RBC None seen Urine WBC None seen Urine Bacteria None seen Ur Culture Indicated? Cult not indicated Micro UA Comment Microscopic normal A. baumannii (PCR) Briana albicans (PCR) C. glabrata (PCR) C. krusei (PCR) C. parapsilosis (PCR) C. tropicalis (PCR) Enterobacteriac sp PCR E. cloacae complex PCR Enterococcus sp PCR E. coli (PCR) H. influenzae (PCR) Hepatitis C Antibody HIV 1&2 Antibody Klebsiella oxytoca PCR Klebsiella pneumoniae List. monocytogenes PCR N. meningitidis (PCR) Proteus species (PCR) Serratia marcescens PCR Staphylococcus sp PCR Staph aureus (PCR) mecA-Methicil Res Gene Streptococcus sp PCR Group A Strep (PCR) Strep agalactiae (PCR) Strep pneumoniae (PCR) P. aeruginosa (PCR) Yokasta/B-Vanco Res Genes KPC-Carbap Res Gene PCR 03/11/18 05:15 WBC RBC Hgb Hct MCV MCH MCHC RDW Plt Count Neut % (Auto) Lymph % (Auto) [place] % (Auto) Eos % (Auto) Baso % (Auto) Neut # (Auto) PT INR APTT Sodium 136 L Potassium 4.2 Chloride 101 Carbon Dioxide 31 BUN 12 Creatinine 0.60 Estimated GFR > 60.0 BUN/Creatinine Ratio 20.0 Glucose 122 H Lactate Calcium 7.4 L Total Bilirubin AST ALT Alkaline Phosphatase Total Protein Albumin Globulin Albumin/Globulin Ratio Lipase Procalcitonin Urine Color Urine Appearance Urine pH Ur Specific [place] Urine Protein Urine Glucose (UA) Urine Ketones Urine Occult Blood Urine Nitrate Urine Bilirubin Urine Urobilinogen Ur Leukocyte Esterase Urine RBC Urine WBC Urine Bacteria Ur Culture Indicated? Micro UA Comment A. baumannii (PCR) Briana albicans (PCR) C. glabrata (PCR) C. krusei (PCR) C. parapsilosis (PCR) C. tropicalis (PCR) Enterobacteriac sp PCR E. cloacae complex PCR Enterococcus sp PCR E. coli (PCR) H. influenzae (PCR) Hepatitis C Antibody HIV 1&2 Antibody Klebsiella oxytoca PCR Klebsiella pneumoniae List. monocytogenes PCR N. meningitidis (PCR) Proteus species (PCR) Serratia marcescens PCR Staphylococcus sp PCR Staph aureus (PCR) mecA-Methicil Res Gene Streptococcus sp PCR Group A Strep (PCR) Strep agalactiae (PCR) Strep pneumoniae (PCR) P. aeruginosa (PCR) Yokasta/B-Vanco Res Genes KPC-Carbap Res Gene PCR Assessment & Plan Plan: Assessment/Plan Narrative: 1. Sepsis due to MRSA bacteremia: Patient is getting IV vancomycin with improvement of fever, hypotension and leukocytosis. She is still mildly tachycardic. Blood cultures from admission growing MRSA and antibiotic sensitivities are pending. Obvious source is bacteremia due to status IV drug use. Lumbar MRI done for complaints of lower back pain but there is no evidence of osteomyelitis or diskitis on MRI. She does have some bulging disc. No evidence of liver or spleen abscess on ultrasound. Plan: Continue IV vancomycin with pharmacy service monitoring trough and adjusting dose. Transthoracic echo. She will need 2 weeks of IV antibiotic if there is low suspicion of endocarditis. She should also have repeat blood cultures at 48 hr to ensure clearing of bacteremia. Consider JUDITH if higher suspicion of endocarditis or if she has persistent bacteremia. 2. Hepatitis-C, presumed chronic: She tested positive for hepatitis-C. Note elevated bilirubin and coagulopathy on admission blood work. Abdominal ultrasound with mild hepatomegaly. Results were reviewed with patient. 3. IV drug use, heroin and methamphetamine dependency: Control withdrawal with oral lorazepam and Dilaudid as needed. She is negative HIV antibodies tested this admission. 4. Coagulopathy, thrombocytopenia: INR 1.8 due to chronic liver disease versus nutritional or sepsis related. Platelets 125 on admission dropped to 94 today. Continue monitoring. Quality VTE Deep Vein Thrombosis/Pulmonary Embolism Present on Admission: No
[2018-03-11] MEDS: LORazepam 1 MG TABLET PO ×2 (14:08→17:49)
[2018-03-11] MEDS: HYDROMORPHONE 2 MG TABLET PO (15:03)
--- NOTE | 2018-03-11 15:22 | CM.DPC ---
DCP/Assessment continued: DIRECT SERVICE WORKER notified patient that CM team would continue to follow closely for d/c planning needs and treatment options. Patient appreciative. P: Pending medical needs. If IV abx required, patient is not good candidate for outpatient therapy secondary to current IVDU. GAMA Bose
[2018-03-11] MEDS: ONDANSETRON 4 MG/2 ML INJ IV (17:48)
[2018-03-11] MEDS: HYDROMORPHONE 2 MG TABLET 4 MG PO ×2 (17:50→22:11)
--- NOTE | 2018-03-11 23:44 | PC.NURSE ---
Shift- New orders for Dilaudid 4mg PO Q-4hr. Parents, Bin and Fanta would like to be notified of any changes, positive or negative, and have left their phone #'s, which are in pt's chart. they will be back tomorrow AM. Pt drinking water and eating popcicles. C/O pain 03/04, with nausea @ 1745, medicated with dilaudid 4mg PO and zofran 4mg IVP, both effective. BRP to void. KEN midline NS @ 100, with vanco. Call light in reach and bed alarm on.
[2018-03-12] VITALS (10 sets, daily range): BP systolic 95–130; BP diastolic 56–71; PULSE 104–114; RESP 14–20; TEMP 36.2–37.6; O2SAT 94–99
--- NOTE | 2018-03-12 | DI.ECHO.S_ITS ---
[facility] +---------+ [facility] +---------+ : : [address] : : : : [id number] : : : : Phone: [phone] Echocardiogram Report + + :Name: ALYSSA DESAI Study Date: 03/12/2018 Height: 68 in : :[facility] Weight: 151 lb : : Gender: Female BSA: 1.8 m2 : :: 1990 Age: 28 yrs BP: 112/56 mmHg: :Reason For Study: Endocarditis : :History: IVDA : :Ordering Physician: Dr. Pendleton : :Megan Performed By: Marlyn Shay : + + Interpretation Summary 1. Small left ventricular cavity size with normal wall thickness and an estimated EF of 50-55% 2. Normal right ventricular size and systolic function. 3. A mass (or vegetation) is appreciated on the atrial side of the anterior mitral leaflet. There is an eccentric jet of at least mild mitral regurgitation. 4. Prolapse (versus partial flail) of the septal leaflet of the tricuspid valve with an eccentric jet of at least mild regurgitation. The estimated RVSP is 33 mm Hg. The estimated right atrial pressure is normal. There is no old study for comparison Procedure: A two-dimensional transthoracic echocardiogram with color flow and Doppler was performed. The study quality was technically adequate. There is no prior echocardiogram noted for this patient. The patient was in sinus tachycardia with heart rates between 107-115 bpm during the exam. Left Ventricle: The left ventricular cavity is small. There is normal left ventricular wall thickness. There is no ventricular septal defect visualized. The ejection fraction is estimated to be 50-55%. Assessment of diastolic parameters indicates normal left ventricular diastolic function and normal filling pressures. Right Ventricle: The right ventricle is normal in size and function. Atria: Both atria are normal in size. There is no Doppler evidence for an interatrial shunt. Mitral Valve: There is a moderate size vegetation or mass on the mitral valve. A mass is appreciated on the atrial side of the anterior mitral leaflet. There is an eccentric jet of mitral regurgitation - at least mild. Aortic Valve: The aortic valve is trileaflet. The aortic valve opens well. No obvious vegetation. No aortic regurgitation is present. Tricuspid Valve: Prolapse versus partial flail of the septal leaflet. There is mild tricuspid regurgitation. The right ventricular systolic pressure is estimated at 33 mmHg assuming a right atrial pressure of 8 mm Hg. Pulmonic Valve: The pulmonic valve is not well visualized. Great Vessels: The aortic root is normal size. The ascending aorta could not be visualized. The IVC is of normal diameter and collapses less than 50% with a sniff. This suggests a right atrial pressure of 8 mm Hg. Pericardium/ Pleura There is no pericardial effusion. MMode/2D Measurements & Calculations LVIDd: 3.6 cm LVOT diam: 2.1 cm LVIDs: 3.0 cm Ao root diam: 3.0 cm FS: 15.2 % EPSS: 0.79 cm IVSd: 1.1 cm LVPWd: 0.90 cm LV johnson. diameter/BSA (cm/m^2): 2.0 LV sys. diameter/BSA (cm/m^2): 1.7 LA A2 area: 13.9 cm2 RA long axis: 4.2 cm LA A4 area: 14.2 cm2 RA area: 14.8 cm2 LA length (vol): 3.6 cm RA vol: 44.4 ml LA vol: 46.1 ml RA : 24.5 ml/m2 LA vol index: 25.4 ml/m2 IVC diam: 1.9 cm Doppler Measurements & Calculations MV E max jose: 90.5 cm/sec TR max jose: 249.9 cm/sec MV A max jose: 66.6 cm/sec TR max P.0 mmHg MV E/A: 1.4 PA V2 max: 71.9 cm/sec Med Peak E' Jose: 11.5 cm/sec PA V2 mean: 50.3 cm/sec E/E' med: 7.9 PA mean P.1 mmHg MV dec time: 0.15 sec PA Accel Time: 0.08 sec MV P1/2t: 43.5 msec MV P1/2t max jose: 90.5 cm/sec MVA(P1/2t): 5.1 cm2 Reading Physician:SHAY
[2018-03-12] MEDS: ONDANSETRON 4 MG/2 ML INJ IV ×4 (00:08→18:20)
[2018-03-12] MEDS: LORazepam 1 MG TABLET PO ×3 (00:23→22:19)
[2018-03-12] MEDS: HYDROMORPHONE 2 MG TABLET 4 MG PO ×4 (02:55→14:55)
--- NOTE | 2018-03-12 03:22 | PC.NURSE ---
assistant casino shift manager: Pt initially very drowsy, hardly could keep her eyes open, reporting back pain 9/10 and feeling anxious regarding the whereabouts of her S.O. Medicated with Ativan. 0250 pt incontinent of urine. Having c/o back pain 03/04 and medicated with prn Dilaudid. Pt assisted to sink to brush her teeth and get cleaned up.
[2018-03-12] MEDS: VANCOMYCIN 1,250 MG in SODIUM CHLORIDE 0.9% 250 ML IV ×2 (04:05→14:02)
[2018-03-12] MEDS: SODIUM CHLORIDE 0.9% 500 ML 21 ML IV (11:06)
[2018-03-12 13:18] LABS: Vancomycin Trough 8.9 ug/mL (10-20)
--- NOTE | 2018-03-12 14:05 | PC.NURSE ---
Day Shift- Pt cooperative with care in AM, did have 2 outbursts calling out loud from BR wanting a shower, stating was in pain and wanted to get the shower done. Prior to this EDUCATIONAL RESOURCE CENTER TEACHER offered to help shower with pt and pt stated she would after her 1100 pain med dose. Pt's mother Fanta present to help with shower and ADL's, assistance offered. Pt apologetic, and then cooperative and thankful for care. Pt's boyfriend Ivelisse in pt's room in AM for short time, appropriate. Vanco trough drawn per order and sent to lab at [phone], at 1300 no trough result, lab called and stated not resulted yet. Around 1340, insurance underwriter sales saw vanco trough level, called pharmacy to verify dosing of 1200 vanco dose, was told to hold for clarification. Around 1355, rec'd call from pharmacy to give current dose and interval with change. See MAR. Pt's pain 7-9/10 to lower back and mid chest non-radiating, pain with deep breaths intermittently. ECHO started at 1200. Pt's mother and 2 visitors explained contact isolation precautions, compliant. Midline dressing changed at 1100 due to getting wet in shower. Dressing change done per hospital policy. Pt tolerated well.
--- NOTE | 2018-03-12 16:19 | CM.DANOTE ---
DCP/Note: Reviewed chart. Patient undergoing multiple testing today. It is anticipated that patient will need IV abx at time of d/c. made in aware in AM rounds that patient active IVDU. Therefore, SNF best option vs. remaining hospitalized. P: Anticipate SNF vs. home. Patient not good candidate for outpatient or home IV abx. CM team to attempt SNF placement. GAMA Bose
[2018-03-12] MEDS: ACETAMINOPHEN 325 MG TABLET 650 MG PO ×2 (16:30→22:19)
--- NOTE | 2018-03-12 17:29 | PM.PN.1 ---
Subjective Date Patient Seen: 03/12/18 Interval history: Patient complains of low back pain, head ache and aching shoulders She has low grade fevers Exam Vital Signs (past 8 hours): - 03/12/18 10:22 03/12/18 11:29 03/12/18 16:32 Temperature 98.8 F 99.7 F H Pulse Rate 111 H 114 H Respiratory Rate 18 20 Blood Pressure 112/56 L 119/69 Pulse Oximetry 97 98 99 03/12/18 16:46 Temperature 99.7 F H Pulse Rate Respiratory Rate Blood Pressure Pulse Oximetry Oxygen Delivery Method Room Air Oxygen Flow Rate 0 Narrative Exam Narrative: Awake and aler Lungs: clear to auscultation CV: RRR nl Sl S2 Abd: soft/non tender/ nondistended Ext: no edema Objective Labs Result Diagrams: 03/11/18 05:15 03/11/18 05:15 Labs: Laboratory Results - last 24 hr 03/12/18 Unknown Vancomycin Trough 8.9 L Assessment & Plan (1) Headache: Problem details: Continue Tylenol and monitor Qualifiers: Headache chronicity pattern: Headache type: other headache syndrome Intractability: Qualified Code(s): G44.89 - Other headache syndrome Current visit: No Status: Acute (2) Fever of unknown origin: Problem details: Staph aureus bactermia, MRSA Current visit: Yes Status: Acute (3) Drug abuse, IV: Problem details: Heroin and methamphetamine regular use and dependence Will start methadone Current visit: Yes Status: Chronic (4) Endocarditis of mitral valve: Problem details: Daptomycin, call placed to the for transfer. No beds today but will call back tomorrow Current visit: Yes Status: Acute (5) Hepatitis C: Problem details: New diagnosis, no treatment at this time Current visit: Yes Status: Acute Quality VTE Deep Vein Thrombosis/Pulmonary Embolism Present on Admission: No
[2018-03-12] MEDS: METHADONE 5 MG TABLET 20 MG PO (20:21)
[2018-03-13] VITALS: O2SAT 96
[2018-03-13] MEDS: LORazepam 1 MG TABLET PO ×3 (02:18→11:41)
[2018-03-13] MEDS: ACETAMINOPHEN 325 MG TABLET 650 MG PO (05:51)
[2018-03-13 05:55] VITALS: BP 103/63; PULSE 111; RESP 18; TEMP 36.8; O2SAT 95
--- NOTE | 2018-03-13 06:56 | PC.NURSE ---
shift leader: Pt initially very drowsy and was able to rest. 0545 pt woke up, was incontinent of urine, diaphoretic in bed and having c/o back and muscle pain. Cleaned pt up with assist from supportive sister and helped assist pt to the couch in room. Medicated with available PRN med Tylenol. Warm blankets applied to back which pt reported helped. 0615 medicated with prn Ativan for anxiety and withdrawal symptoms. 0645 pt resting on the couch with sister close by. Agrees to call if pt wakes up and needs assist.
[2018-03-13 08:10] VITALS: BP 106/59; PULSE 107; RESP 15; TEMP 36.5; O2SAT 98
[2018-03-13] MEDS: METHADONE 5 MG TABLET 20 MG PO (08:48)
[2018-03-13] MEDS: METHOCARBAMOL 500 MG TABLET PO (08:49)
[2018-03-13] MEDS: SODIUM CHLORIDE 0.9% 500 ML 21 ML IV (08:55)
[2018-03-13 09:00] VITALS: O2SAT 94
--- NOTE | 2018-03-13 10:36 | PM.PN.1 ---
Subjective Date Patient Seen: 03/13/18 Interval history: Some shortness of breath earlier but now improved. She continues to have low back pain. She is unsure if methadone has helped. Exam Vital Signs (past 8 hours): - 03/13/18 05:55 03/13/18 08:10 03/13/18 09:00 Temperature 98.3 F 97.7 F Pulse Rate 111 H 107 H Respiratory Rate 18 15 Blood Pressure 103/63 106/59 L Pulse Oximetry 95 98 94 Oxygen Delivery Method Room Air Oxygen Flow Rate 0 Narrative Exam Narrative: Awake and Alert, NAD Lungs: Clear to auscultation CV: RRR nl Sl S2 2/6 CAROL ANN Abd: soft/ non tender/ non distended no HSM Ext: no edema Objective Labs Result Diagrams: 03/11/18 05:15 03/11/18 05:15 Labs: ELaboratory Results - last 24 hr Echo reviewed: 1 cm mitral valve lesion, suggestive of a vegetation small amount of mitral regurgitation Triscupid valve with small jet? vegetation as well Blood cultures are MSSA, pansensitive 03/12/18 Unknown Vancomycin Trough 8.9 L Assessment & Plan (1) Endocarditis of mitral valve: Problem details: Daptomycin, call placed to the for transfer. No beds today but will call back tomorrow Discussed with Cardiology, Dr. 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
--- NOTE | 2018-03-13 11:20 | P.DS_ITS ---
History of Present Illness Date Patient Seen: 03/13/18 Chief complaint: STATES BLOOD INFECTION Narrative: Patient is a 28-year-old female with current IV drug use history presents to the emergency department with complaints of fever and chills and not feeling well for the past week. On initial vitals she had a temp of 102.8? , heart rate 140, blood pressure 92/60, O2 sat 97% room air. Along with the fever and chills she has had severe pain in the lumbar spine as well as a headache and intermittent nausea or vomiting. She reports a slight cough but nothing persistent. She admits to sharing needles with her boyfriend. She uses both heroin and methamphetamine. She states her boyfriend was recently admitted to outside hospital and diagnosed with a yeast infection in his blood. She states she had blood work done a month ago and told she has elevated liver enzymes and to get checked for hepatitis-C. She has not had this testing done. She denies HIV history. Discharge Providers Date of admission: 03/10/18 18:54 Primary care physician: Alex Barraza MD Discharge provider: Raina Fournier MD Summary Discharge Diagnosis: MSSA Bacteremia MSSA Sepsis MSSA Mitral Valve Endocarditis Hepatitis C-New diagnosis IV Substance Abuse-Heroine/Methamphatamine Hospital Course: Patient was admitted to the hospital for fever, sepsis, and low back pain. She had blood cultures that were positive for MSSA. She was initially treated with Vancomycin but her levels were subtherapeutic and she was switched to Daptomycin. Patient continued to have low back pain, low grade withdrawal from opioids. She underwent 2D echo which confirmed a vegetation on the mitral valve with mild mitral insufficiency. There was concern regarding a possible tricuspid valve vegetation as well. She made improvement clinically with antibiotics and IV hydration. As the patient wound need a Transesophageal Echo, Cardiology Consultation, Infectious Disease consultation, and CT Surgery consultation, arrangements were made to transfer her to a higher level of care. I spoke to Dr. Peralta and Dr. Bradshaw at [facility] in [place] who graciously agreed to accept her in transfer. The patient has been informed and arrangements were made to transfer her accordingly. Status at Discharge Functional status at discharge: independent ambulation Overall status at discharge: patient is not back to baseline Time Spent with Patient Greater than 30 minutes Exam Vital Signs (past 8 hours): - 03/13/18 05:55 03/13/18 08:10 03/13/18 09:00 Temperature 98.3 F 97.7 F Pulse Rate 111 H 107 H Respiratory Rate 18 15 Blood Pressure 103/63 106/59 L Pulse Oximetry 95 98 94 Oxygen Delivery Method Room Air Oxygen Flow Rate 0 Narrative Exam Narrative: patient is awake and alert Lungs: Clear to auscultation CV: RRR nl Sl S2 2/6 CAROL ANN Abd: soft/ non tender/ non distended/ no HSM Ext: no edema Objective Imaging MRI - lumbar: Radiologist's impression: Radiologist's impression: Focal degenerative changes are seen at the L3-L4 level and the L4-L5 level, which are more prominent than would be expected for a patient of this young age. At L3-L4, there is a central disc extrusion. Annular fissures are seen posteriorly at the L3-L4 and L4-L5 levels. US - abdomen: Radiologist's impression: diologist's impression: 1. Contracted gallbladder without evidence of cholelithiasis. 2. Borderline enlargement of the liver. No definite liver lesions. 3. Mild splenomegaly. Labs Result Diagrams: 03/11/18 05:15 03/11/18 05:15 Labs: Laboratory Results - last 24 hr 03/12/18 Unknown Vancomycin Trough 8.9 L Discharge Plan Discharge Plan Discharge Problem: Fever of unknown origin, Drug abuse, IV Patient Disposition: [facility] Transfer to: [facility] Under care of provider: Dr. Peralta Discharge Med Rec/Prescriptions Prescriptions: New lorazepam 1 mg Tablet 1 mg PO Q4HR PRN (Reason: Anxiety) Qty: 7 RF: 0 ondansetron HCl (PF) 4 mg/2 mL Solution 4 mg IV Q6HR Qty: 10 RF: 0 heparin, porcine (PF) 10 unit/mL Syringe 50 unit IV PRN PRN (Reason: Flush) 5 Days RF: 0 daptomycin 500 mg recon soln 410 mg IV Q24H Qty: 2 RF: 0 acetaminophen 325 mg Tablet 650 mg PO Q6H PRN (Reason: As Needed For Fever/Mild Pain) Qty: 30 RF: 0 methocarbamol 500 mg Tablet 500 mg PO QID PRN (Reason: Muscle Spasm) Qty: 20 RF: 0 No Action No Known Home Medications RF: 0 Discharge Orders: Discharge (Order); Ordered 03/13/18 Ordered By: Raina Fournier Discharge Health Status Brief summary of current health status: Patient was admitted with fever, tachycardia, hypotension. She was found to have MSSA bacterial endocarditis. Patient had a confirmed vegetation identified by 2D echo on the mitral valve. She was transferred to [facility] in [place] for a higher level of care. Drs. Peralta accepted her. I spoke to Dr. Do who is expecting her as well. 35 minutes was spent on this discharge Discharge Data Primary Care Provider: Alex Barraza Attending Provider: Helder Guzman Admit Date/Time: 03/10/18 18:54 Quality VTE Deep Vein Thrombosis/Pulmonary Embolism Present on Admission: No
[2018-03-13] MEDS: ONDANSETRON 4 MG/2 ML INJ IV (11:41)
[2018-03-13 11:58] VITALS: BP 106/63; PULSE 115; RESP 14; TEMP 36.4; O2SAT 99
--- NOTE | 2018-03-13 12:46 | PC.NURSE ---
Addendum entered by Valeria Bolton R.N. 03/13/18 14:11: TSF - ambul crew arrived, paperwork, brief report and vitals provided, tsf to vinicio, sister and SO picked up all belongings. Original Note: Addendum entered by Valeria Bolton R.N. 03/13/18 13:20: TRSF - report called to lettuce trimmer at [facility] in [facility], belongings packed by sister, mult flower vases and bags of snacks, dvd player, clothing bag, tele has been dc'd, voided prior to departure. Original Note: AM NOTE - pt is drowsy, awakens easily, diaphoretic, skin is warm to touch, pt has mult bruising, states back discomfort, asking for methadone, given 20mg po this am with robaxin for muscle tremors/spasm, sister is at bedside, denies nausea now, remy a few bites breakfast, drinking fluids, later Dr. Fournier in and informed pt that she would be transferred to [facility] in [facility], pt became a little tearful after update and given 1mg po ativan.
== END 2018-03-13 14:10 | disposition short-term general hospital (02) | DRG 720 ==
LOC: ED 18:52 → AC 18:55
PROVIDERS: Emergency Medicine; Admitting Provider Internal Medicine; Emergency Provider Emergency Medicine; Family Provider Family Medicine; PCP Family Medicine; Visit Provider Internal Medicine
DX: A41.01 Sepsis due to Methicillin susceptible Staphylococcus aureus (principal); R65.20 Severe sepsis without septic shock; I33.9 Acute and subacute endocarditis, unspecified; B19.20 Unspecified viral hepatitis C without hepatic coma; D68.9 Coagulation defect, unspecified; F11.20 Opioid dependence, uncomplicated; F15.20 Other stimulant dependence, uncomplicated; F17.210 Nicotine dependence, cigarettes, uncomplicated; G44.89 Other headache syndrome; B95.61 Methicillin susceptible Staphylococcus aureus infection as the cause of diseases classified elsewhere; I95.9 Hypotension, unspecified
CPT/HCPCS: 36415; 36591; 71045; 72148; 76700; 80048; 80053; 80202; 81001; 83605; 83690; 84145; 85025; 85610; 85730; 86703; 86803; 87040; 87077; 87147; 87150; 87186; 87205; 87522; 93005; 93306; 96361; 96365; 99284; 99285; 99406; J0878; J1170; J1642; J2060; J2405; J2543; J3370